=== PATIENT | female | born 1975 | race Caucasian/White ===

== ENCOUNTER → 2016-12-22 | Outpatient (REF) | payer MEDICAID ==
[2016-12-22 12:48] LABS: LUTEINIZING HORMONE 54.5 mIU/mL
[2016-12-22 12:49] LABS: FOLLICLE STIMULATING HORMONE 17.2 mIU/mL
== END ==
LOC: M LABDRAW1 11:28
PROVIDERS: ATTEND Physician Assistant Medical
DX: E28.2 Polycystic ovarian syndrome (principal)

== ENCOUNTER → 2017-03-31 | Day surgery (SDC) | payer OTHER ==
[~2017-03-31] VITALS: Ht 162.6 cm; Wt 109.8 kg
[~2017-03-31] MED LIST: ACETYLCHOLINE OPHTH SOLN 1% 2ML (MIOCHOL-E) As Ordered ONE; BUPR1TAB17 PO; BUPR1TAB52 PO; CEFUROXIME 1MG/0.1ML INTRACAMERAL INJ As Ordered ONE; HEALON DUET (HEALON 10MG/ML 0.55ML & HEALON ENDOCOAT 30MG/ML 0.85ML) As Ordered ONE; IBUP200C PO; LIDOCAINE 0.75%/EPINEPHRINE 0.025% IN BSS 1ML SYR INTRACAMERAL (OR ONLY) As Ordered ONE; LIDOCAINE 1% SDV INJ 30 ML VIAL As Ordered ONE; LR 1,000 ML IV ONE; LR 1,000 ML IV SCH; METF500T PO; MIDAZOLAM INJ 2 MG/2 ML VIAL (J2250) As Ordered ONE; ONDANSETRON 4MG/2ML VIAL (J2405) IV PRN; PHENYLephrine HCL 500 MCG/5 ML (100MCG/ML) SYRINGE (J2370) As Ordered ONE; POVIDONE-IODINE 5% OPHTH PREP SOL 30ML As Ordered ONE; PROPOFOL 200 MG/20 ML VIAL As Ordered ONE; VERAP80TA PO; fentaNYL 100 MCG/2 ML INJECTION (J3010) As Ordered ONE
[2017-03-31 14:50] VITALS: BP 120/74
--- NOTE | 2017-03-31 15:05 | RO ---
DATE OF PROCEDURE: 03/31/2017 PREOPERATIVE DIAGNOSIS: Unexplained syncope. POSTOPERATIVE DIAGNOSIS: Unexplained syncope. FINDINGS: Unexplained syncope. PROCEDURE PERFORMED: Implantation of an implantable loop recorder. SURGEON: Francis Olson MD CREW [employer]ESS ATTENDANT: None. ANESTHESIA: Lidocaine 1% local/monitor anesthetic care. SPECIMENS: No specimens. ESTIMATED BLOOD LOSS: Less than 2 mL. No blood products replaced. No drains. COMPLICATIONS: None. DESCRIPTION OF PROCEDURE: Patient was prepped and draped over the anterior chest. Lidocaine 1% was used as a local anesthetic. An incision was made with an #15 blade, approximately 1 cm in length, roughly in the fourth interspace close to the sternum. The insertion containing the loop recorder was then placed into the incision and guide advanced in a caudal direction parallel to the skin within the epicardial fat. The insertion tool was rotated 180 degrees and then the loop recorder was advanced into the subcutaneous fat using the plunger that comes with the insertion tool. The plunger was then removed and then the insertion tool was removed leaving the loop recorder in place. The initial R wave measured 0.28 mV. Next, a single deep #2-0 Vicryl stitch was placed to help approximate the incision. Next, a #4-0 Biosyn was used subcuticular to approximate the skin with the free ends of the suture placed at the level of the skin about three quarters of a centimeter to either side of the incision. Next, three layers of DERMABOND was applied. Once the DERMABOND was dried, the free ends of the subcuticular suture were snipped at the level of the skin. The implantable loop recorder implanted was a [employer] Reveal LINQ, model LNQ11 with serial number [id number]. cc: Ray Edmonds MD *ROJAS Andrews
== END | disposition home or self-care (01) ==
LOC: M SDC 12:03
PROVIDERS: ATTEND Internal Medicine Cardiovascular Disease
DX: R55 Syncope and collapse (principal); R00.2 Palpitations; E66.01 Morbid (severe) obesity due to excess calories; F41.9 Anxiety disorder, unspecified; F32.9 Major depressive disorder, single episode, unspecified; T88.59XD Other complications of anesthesia, subsequent encounter; Z79.899 Other long term (current) drug therapy; Z79.84 Long term (current) use of oral hypoglycemic drugs; Z87.891 Personal history of nicotine dependence; Z98.51 Tubal ligation status
CPT/HCPCS: 33284; C1764

== ENCOUNTER → 2017-08-01 | Outpatient (REF) | payer OTHER ==
[~2017-08-01] MED LIST changes: -ACETYLCHOLINE OPHTH SOLN 1% 2ML (MIOCHOL-E) As Ordered ONE; -BUPR1TAB17 PO; +BUPR1TAB53 PO; -CEFUROXIME 1MG/0.1ML INTRACAMERAL INJ As Ordered ONE; -HEALON DUET (HEALON 10MG/ML 0.55ML & HEALON ENDOCOAT 30MG/ML 0.85ML) As Ordered ONE; -IBUP200C PO; +IBUP200C10 PO; -LIDOCAINE 0.75%/EPINEPHRINE 0.025% IN BSS 1ML SYR INTRACAMERAL (OR ONLY) As Ordered ONE; -LIDOCAINE 1% SDV INJ 30 ML VIAL As Ordered ONE; -LR 1,000 ML IV ONE; -LR 1,000 ML IV SCH; -METF500T PO; +METF500T13 PO; -MIDAZOLAM INJ 2 MG/2 ML VIAL (J2250) As Ordered ONE; -ONDANSETRON 4MG/2ML VIAL (J2405) IV PRN; -PHENYLephrine HCL 500 MCG/5 ML (100MCG/ML) SYRINGE (J2370) As Ordered ONE; -POVIDONE-IODINE 5% OPHTH PREP SOL 30ML As Ordered ONE; -PROPOFOL 200 MG/20 ML VIAL As Ordered ONE; -fentaNYL 100 MCG/2 ML INJECTION (J3010) As Ordered ONE
[2017-08-01 11:33] LABS: MEAN CORPUSCULAR HEMOGLOBIN 29.7 pg (27.0-33.0); MEAN CORPUSCULAR HGB CONC 33.1 g/dl (32.0-36.5); MEAN CORPUSCULAR VOLUME 89.5 fl (80.0-96.0); RED CELL DISTRIBUTION WIDTH 12.9 % (11.5-14.5); WHITE BLOOD COUNT 7.1 K/mm3 (4.0-10.0)
[2017-08-01 11:49] LABS: ALBUMIN 3.4 GM/DL (3.2-5.2); ALBUMIN/GLOBULIN RATIO 1.06 (1.00-1.93); ALKALINE PHOSPHATASE 35 U/L (45-117); ALT/SGPT 36 U/L (12-78); ANION GAP 9 MEQ/L (8-16); AST/SGOT 13 U/L (15-37); BILIRUBIN,TOTAL 0.2 MG/DL (0.2-1.0); BLOOD UREA NITROGEN 12 MG/DL (7-18); CALCIUM LEVEL 8.1 MG/DL (8.5-10.1); CARBON DIOXIDE LEVEL 25 MEQ/L (21-32); CHLORIDE LEVEL 109 MEQ/L (98-107); CHOLESTEROL LEVEL 163 MG/DL (<200); CREATININE FOR GFR 0.68 MG/DL (0.55-1.02); GLOMERULAR FILTRATION RATE > 60.0 (>58); GLUCOSE, FASTING 97 MG/DL (70-105); POTASSIUM SERUM 4.4 MEQ/L (3.5-5.1); SODIUM LEVEL 143 MEQ/L (136-145); T UPTAKE 33 % (30-39); THYROXINE (T4) 8.5 UG/DL (4.5-12.0); TOTAL PROTEIN 6.6 GM/DL (6.4-8.2); TRIGLYCERIDES LEVEL 246 MG/DL (<150)
== END ==
LOC: M SFHCCLAY 08:06
PROVIDERS: ATTEND Nurse Practitioner Family
DX: I49.3 Ventricular premature depolarization (principal); I10 Essential (primary) hypertension; F32.9 Major depressive disorder, single episode, unspecified

== ENCOUNTER → 2017-11-10 | Outpatient (REF) | payer OTHER ==
[2017-11-10 12:05] LABS: ESTIMATED AVERAGE GLUCOSE 117 MG/DL (60-110)
[2017-11-10 12:12] LABS: CHOLESTEROL LEVEL 180 MG/DL (<200); TRIGLYCERIDES LEVEL 272 MG/DL (<150)
[2017-11-10 12:26] LABS: ERYTHROCYTE SEDIMENTATION RATE 6 mm/hr (0-20)
[2017-11-12 00:10] LABS: Lyme Disease IgG/IgM Antibodie <0.91 ISR (0.00-0.90); Lyme Disease IgM Ab Quantitati <0.80 index (0.00-0.79)
== END ==
LOC: M SFHCCLAY 07:29
DX: E28.2 Polycystic ovarian syndrome (principal); E78.5 Hyperlipidemia, unspecified; E55.9 Vitamin D deficiency, unspecified; I10 Essential (primary) hypertension
CPT/HCPCS: 83036

== ENCOUNTER → 2018-05-08 | Outpatient (REF) | payer OTHER ==
[2018-05-08 12:15] LABS: CHOLESTEROL LEVEL 179 MG/DL (<200); CHOLESTEROL RISK RATIO 5.424 (<5); HDL CHOLESTEROL 33 MG/DL (>40); LDL CHOLESTEROL 71.8 MG/DL (<100); NON-HDL-C 146 MG/DL; TRIGLYCERIDES LEVEL 371 MG/DL (<150)
== END ==
LOC: M SFHCCLAY 09:27
DX: E78.5 Hyperlipidemia, unspecified (principal)
CPT/HCPCS: 80061

== ENCOUNTER 2018-06-08 12:21 | Day surgery (SDC) | payer OTHER ==
[~2018-06-08 12:21] MED LIST changes: -BUPR1TAB52 PO; -BUPR1TAB53 PO; -IBUP200C10 PO; +LIDOCAINE 2% INJ 100 MG/5 ML SDV (FOR ANES.) As Ordered; -METF500T13 PO; +MIDAZOLAM INJ 2 MG/2 ML VIAL (J2250) As Ordered; +ONDANSETRON 4MG/2ML VIAL (J2405) As Ordered; +PROPOFOL 500 MG/50 ML VIAL As Ordered; -VERAP80TA PO; +dexameTHASONE 4 MG/ML 1ML VIAL (J1100) As Ordered; +fentaNYL 100 MCG/2 ML INJECTION (J3010) As Ordered
[2018-06-08] MEDS ORDERED: LR 1,000 ML IV (12:45)
[2018-06-08] MEDS: LIDOCAINE 1% SDV INJ 30 ML VIAL As Ordered (15:05)
== END 2018-06-08 16:25 | disposition home or self-care (01) ==
LOC: M SDC 12:21
DX: Z45.09 Encounter for adjustment and management of other cardiac device (principal); R00.8 Other abnormalities of heart beat; K21.9 Gastro-esophageal reflux disease without esophagitis; F32.9 Major depressive disorder, single episode, unspecified; F41.9 Anxiety disorder, unspecified; Z79.899 Other long term (current) drug therapy
CPT/HCPCS: 33284

== ENCOUNTER → 2018-08-08 | Outpatient (REF) | payer OTHER ==
[2018-08-09 10:18] LABS: RUBELLA IgG QUALITATIVE IMMUNE (IMMUNE)
[2018-08-09 10:40] LABS: RUBEOLA IgG ANTIBODY 68.5 AU/mL (Immune >29.9)
== END ==
LOC: M SFHCCLAY 08:30
DX: Z11.59 Encounter for screening for other viral diseases (principal)

== ENCOUNTER → 2020-06-05 | Outpatient (REF) | payer BC ==
[~2020-06-05] MED LIST changes: +ALEV220T26 PO; +BUPR1TAB52 PO; +BUPR1TAB53 PO; +IBUP200C25 PO; -LIDOCAINE 2% INJ 100 MG/5 ML SDV (FOR ANES.) As Ordered; +METF500T13 PO; -MIDAZOLAM INJ 2 MG/2 ML VIAL (J2250) As Ordered; +MULT1TAB10 PO; +OMEP40CA97 PO; -ONDANSETRON 4MG/2ML VIAL (J2405) As Ordered; -PROPOFOL 500 MG/50 ML VIAL As Ordered; +VERAP80TA PO; -dexameTHASONE 4 MG/ML 1ML VIAL (J1100) As Ordered; -fentaNYL 100 MCG/2 ML INJECTION (J3010) As Ordered
== END ==
LOC: M SFHCCLAY 10:35
PROVIDERS: ATTEND Nurse Practitioner Family
DX: Z53.9 Procedure and treatment not carried out, unspecified reason (principal); I10 Essential (primary) hypertension; E66.01 Morbid (severe) obesity due to excess calories

== ENCOUNTER → 2020-11-12 | Outpatient (CLI) | payer BC | LOC: M LABSMTC 10:40 | PROVIDERS: ATTEND Family Medicine | DX: Z20.828 Contact with and (suspected) exposure to other viral communicable diseases (principal) ==

== ENCOUNTER → 2021-04-02 | Outpatient (CLI) | payer BC ==
[~2021-04-02] MED LIST changes: +VERA80TA3 PO; -VERAP80TA PO
--- NOTE | 2021-04-07 11:45 | SLEEPHOME ---
DIAGNOSTIC HOME SLEEP STUDY DATE: 04/02/2021 ORDERED BY: SAM Swan Diagnostic home sleep testing was performed due to concern for the obstructive sleep apnea syndrome in this patient with a history of excessive somnolence who has comorbidities of hypertension and acid reflux. For testing, a nocturnal T3 respiratory monitoring device was used. Continuous record was made of pulse, oxygen saturation, air flow, chest and abdominal strain, and body position. 11 hours and 59 minutes of data were reviewed. There were 6 hours and 6 minutes marked as time in bed. During the interval marked time in bed, there were 55 respiratory events identified of 10 seconds in duration or greater for a respiratory event index 9. The events were obstructive. Baseline pulse rate 73. Pulse rate range 64 to 96. Baseline saturation was 93%. Saturations fell to 83%. Testing was performed in both the supine and non-supine positions. IMPRESSION: Abnormal home sleep testing, with repetitive respiratory events and oxygen desaturations to 83% with a respiratory event index of 9, is consistent with the obstructive sleep apnea syndrome. RECOMMENDATION: The patient should be encouraged to undergo formal sleep evaluation.
== END ==
LOC: M SLEEP HO 12:13
PROVIDERS: ATTEND Nurse Practitioner Family
DX: R06.83 Snoring (principal); R40.0 Somnolence

== ENCOUNTER → 2023-12-16 | Outpatient (REF) | payer BC ==
[~2023-12-16] MED LIST changes: +OMEP40CA4 PO; -OMEP40CA97 PO
[2023-12-16 12:11] LABS: ALBUMIN 3.6 G/DL (3.2-5.2); ALKALINE PHOSPHATASE 26 U/L (46-116); ALT/SGPT 35 U/L (7.0-40); AST/SGOT 16 U/L (<34); BILIRUBIN,TOTAL 0.4 MG/DL (0.3-1.2); BLOOD UREA NITROGEN 14 MG/DL (9-23); CARBON DIOXIDE LEVEL 27 MMOL/L (20-31); CHLORIDE LEVEL 102 MMOL/L (98-107); CREATININE FOR GFR 0.62 MG/DL (0.55-1.30); GLOMERULAR FILTRATION RATE > 60.0 (>58); GLUCOSE, FASTING 88 MG/DL (60-100); SODIUM LEVEL 137 MMOL/L (136-145)
== END ==
LOC: M SFHCCLAY 08:20
PROVIDERS: ATTEND Nurse Practitioner Family
DX: R63.5 Abnormal weight gain (principal)

== ENCOUNTER → 2024-12-14 | Outpatient (REF) | payer BC ==
[2024-12-14 18:11] LABS: FREE T4 1.38 NG/DL (0.89-1.76); IRON (FE) 52 UG/DL (50-170); PERCENT SATURATION 17.9 % (13.2-45.0); THYROID STIMULATING HORMONE 0.953 uIU/ML (0.55-4.78); TOTAL IRON BINDING CAPACITY 291 UG/DL (250-425)
[2024-12-14 18:12] LABS: ALBUMIN 3.8 G/DL (3.2-5.2); ALKALINE PHOSPHATASE 36 U/L (35-104); ALT/SGPT 16 U/L (7.0-40); AST/SGOT 9 U/L (<34); BILIRUBIN,TOTAL 0.3 MG/DL (0.3-1.2); BLOOD UREA NITROGEN 14 MG/DL (9-23); CALCIUM LEVEL 9.4 MG/DL (8.5-10.1); CARBON DIOXIDE LEVEL 24 MMOL/L (20-31); CHLORIDE LEVEL 108 MMOL/L (98-107); CHOLESTEROL LEVEL 243 MG/DL (<200); CHOLESTEROL RISK RATIO 5.71 (<5); FERRITIN 90.2 NG/ML (7.3-270.7); GLOMERULAR FILTRATION RATE > 60.0 (>51); GLUCOSE, FASTING 98 MG/DL (60-100); HDL CHOLESTEROL 42.5 MG/DL (>40); LDL CHOLESTEROL 157.7 MG/DL (<100); NON-HDL-C 200.5 MG/DL; SODIUM LEVEL 141 MMOL/L (136-145); TOTAL PROTEIN 7.8 G/DL (5.7-8.2); TRIGLYCERIDES LEVEL 214 MG/DL (<150)
[2024-12-14 18:13] LABS: VITAMIN B12 LEVEL 562 PG/ML (211-911)
[2024-12-14 18:18] LABS: FOLATE 9.25 NG/ML (>5.4)
[2024-12-14 18:37] LABS: BASO % 0.4 % (0.0-1.0); EOS # 0.1 10^3/uL (0.0-0.5); EOS % 0.7 % (0.0-3.0); HEMATOCRIT 45.1 % (36.0-47.0); HEMOGLOBIN 15.3 g/dl (12.0-15.5); LYMPH # 3.5 10^3/uL (1.5-5.0); LYMPH % 43.4 % (24.0-44.0); MEAN CORPUSCULAR HEMOGLOBIN 30.3 pg (27.0-33.0); MEAN CORPUSCULAR HGB CONC 33.9 g/dl (32.0-36.5); MEAN CORPUSCULAR VOLUME 89.3 fl (80.0-96.0); MONO # 0.7 10^3/uL (0.0-0.8); NEUTROPHILS # 3.9 10^3/uL (1.5-8.5); NEUTROPHILS % 47.3 % (36.0-66.0); PLATELET COUNT, AUTOMATED 301 10^3/uL (150-450); RED BLOOD COUNT 5.05 10^6/uL (4.00-5.40); WHITE BLOOD COUNT 8.1 10^3/uL (4.0-10.0)
== END ==
LOC: M SFHCCLAY 13:19
PROVIDERS: ATTEND Nurse Practitioner Family
DX: N95.1 Menopausal and female climacteric states (principal); E66.9 Obesity, unspecified; I10 Essential (primary) hypertension; E78.5 Hyperlipidemia, unspecified; E55.9 Vitamin D deficiency, unspecified; E28.2 Polycystic ovarian syndrome; Z98.84 Bariatric surgery status

== ENCOUNTER → 2025-08-07 | Outpatient (REF) | payer BC ==
[~2025-08-07] MED LIST changes: +BUPR-670 PO; +BUPR150T15 PO; -BUPR1TAB52 PO; -BUPR1TAB53 PO
[2025-08-09 14:37] LABS: HPV APTIMA Not Detected (Not Detected)
== END ==
LOC: M SFHCCLAY 08:45
PROVIDERS: ATTEND Nurse Practitioner Family
DX: Z12.4 Encounter for screening for malignant neoplasm of cervix (principal)
CPT/HCPCS: 87624; G0123